=== PATIENT | male | born 1990 | race Caucasian/White ===

== ENCOUNTER 2017-12-17 07:51 | Emergency (ER) | payer OTHER ==
[2017-12-17] MEDS: TETRACAINE 0.5% OPHTH SOLN 4ML OD (08:43)
[2017-12-17] MEDS: FLUORESCEIN OPHTH 1 MG STRIP OD (08:43)
[2017-12-17] MEDS ORDERED: FLUORESCEIN OPHTH 1 MG STRIP OD (08:45)
== END 2017-12-17 09:08 | disposition home or self-care (01) ==
LOC: M ED 07:51
DX: S05.01XA Injury of conjunctiva and corneal abrasion without foreign body, right eye, initial encounter (principal); W22.8XXA Striking against or struck by other objects, initial encounter; Y92.89 Other specified places as the place of occurrence of the external cause
CPT/HCPCS: 99283

== ENCOUNTER 2018-11-21 09:14 | Emergency (ER) | payer OTHER, SELFPAY ==
[~2018-11-21] VITALS: Ht 177.8 cm; Wt 97.7 kg
[~2018-11-21 09:14] MED LIST: ERYTOIN8 OD
[2018-11-21 10:13] LABS: AMORPHOUS SEDIMENT SMALL (NEGATIVE); APPEARANCE, URINE CLEAR (CLEAR); BACTERIA, URINE AUTO NEGATIVE (NEGATIVE); BILIRUBIN, URINE AUTO NEGATIVE (NEGATIVE); BLOOD, URINE BLOOD 3+ (NEGATIVE); COLOR, URINE YELLOW (YELLOW); GLUCOSE, URINE (UA) AUTO NEGATIVE (NEGATIVE); KETONE, URINE AUTO NEGATIVE (NEGATIVE); LEUKOCYTE ESTERASE, URINE AUTO 3+ (NEGATIVE); MUCUS, URINE SMALL (NEGATIVE); NITRITE, URINE AUTO NEGATIVE (NEGATIVE); PROTEIN, URINE AUTO NEGATIVE (NEGATIVE); RBC, URINE AUTO 112 /HPF (0-3); SPECIFIC GRAVITY URINE AUTO 1.028 (1.002-1.035); SQUAMOUS EPITHELIAL CELL UR AU 0 /HPF (0-6); UROBILINOGEN, URINE AUTO 0.2 mg/dL (0.0-2.0); WBC, URINE AUTO 14 /HPF (0-3)
--- NOTE | 2018-11-21 10:52 | REP ---
High-resolution scrotal sonography: History: Left testalgia after sitting. Elevated testes. No comparison imaging. Sonographic findings: High-resolution bilateral scrotal sonography shows homogeneous testicular parenchyma bilaterally. No intratesticular lesion is seen on either side. Testicular Doppler flow is normal bilaterally. Resistive indices are 0.52 and 0.62 on the right and left respectively by Doppler. Right testis measures 5.0 x 2.4 x 3.6 cm. Left testicular dimensions are 5.3 x 2.3 x 3.5 cm. Epididymi are symmetric in size. There is a 5 mm septated cyst in the head of the epididymis on the right. There is a 5 mm epididymal cyst on the left as well. No hydrocele or hernia is seen. Impression: Small epididymal cysts. No significant abnormality noted. Electronically Signed by Ramírez Sanchez MD 11/21/2018 10:44 A
[2018-11-21 11:15] LABS: CHLAMYDIA DNA AMPLIFICATION NEGATIVE (NEGATIVE); GC DNA AMPLIFICATION NEGATIVE (NEGATIVE)
[2018-11-21] MEDS ORDERED: IBUP-1022 PO (11:40)
[2018-11-21 11:54] VITALS: BP 143/104
== END 2018-11-21 11:57 | disposition home or self-care (01) ==
LOC: M ED 09:14
DX: N50.812 Left testicular pain (principal); R31.29 Other microscopic hematuria; L72.0 Epidermal cyst; F17.220 Nicotine dependence, chewing tobacco, uncomplicated

== ENCOUNTER 2018-12-04 05:19 | Emergency (ER) | payer SELFPAY ==
[~2018-12-04] VITALS: Ht 175.3 cm; Wt 97.0 kg
[~2018-12-04 05:19] MED LIST changes: +IBUP-1022 PO
[2018-12-04 06:01] LABS: BASO # 0.1 10^3/uL (0.0-0.2); BASO % 0.5 % (0.0-1.0); EOS # 0.2 10^3/uL (0.0-0.50); EOS % 2.2 % (0.0-3.0); HEMATOCRIT 43.8 % (42.0-52.0); HEMOGLOBIN 15.5 g/dl (13.5-17.5); LYMPH # 2.5 10^3/uL (1.5-6.5); LYMPH % 22.4 % (24.0-44.0); MEAN CORPUSCULAR HEMOGLOBIN 31.8 pg (27.0-33.0); MEAN CORPUSCULAR HGB CONC 35.4 g/dl (32.0-36.5); MEAN CORPUSCULAR VOLUME 89.9 fl (80.0-96.0); MONO # 1.1 10^3/uL (0.0-0.8); NEUTROPHILS # 7.1 10^3/uL (1.8-7.7); NEUTROPHILS % 64.2 % (36.0-66.0); PLATELET COUNT, AUTOMATED 202 10^3/uL (150-450); RED BLOOD COUNT 4.87 10^6/uL (4.30-6.10); WHITE BLOOD COUNT 11.1 10^3/uL (4.0-10.0)
[2018-12-04] MEDS ORDERED: KETOROLAC 30 MG/ML VIAL (J1885) IV ONE (06:15)
[2018-12-04] MEDS ORDERED: MORPHINE 2 MG/ML 1ML SYRINGE (J2270) IV ONE (06:15)
[2018-12-04] MEDS ORDERED: ONDANSETRON 4MG/2ML VIAL (J2405) IV ONE (06:15)
[2018-12-04] MEDS ORDERED: NS 1,000 ML IV ONE (06:15)
[2018-12-04 06:18] LABS: BLOOD UREA NITROGEN 14 MG/DL (7-18); CALCIUM LEVEL 9.3 MG/DL (8.5-10.1); CARBON DIOXIDE LEVEL 26 MEQ/L (21-32); CHLORIDE LEVEL 106 MEQ/L (98-107); CREATININE FOR GFR 0.88 MG/DL (0.70-1.30); GLOMERULAR FILTRATION RATE > 60.0 (>60); GLUCOSE, FASTING 114 MG/DL (70-100); POTASSIUM SERUM 4.1 MEQ/L (3.5-5.1); SODIUM LEVEL 140 MEQ/L (136-145)
--- NOTE | 2018-12-04 06:39 | REPVR ---
EXAM: CT Abdomen and Pelvis Without Contrast EXAM DATE/TIME: 12/04/2018 6:02 AM CLINICAL HISTORY: 28 years old, male; Abdominal pain; Flank; Left; Additional info: Llq pain diarrhea, hematuria; Kidney stone vs diverticulitis TECHNIQUE: Imaging protocol: Axial computed tomography images of the abdomen and pelvis without contrast. Coronal and sagittal reformatted images were created and reviewed. Radiation optimization: All CT scans at this facility use at least one of these dose optimization techniques: automated exposure control; mA and/or kV adjustment per patient size (includes targeted exams where dose is matched to clinical indication); or iterative reconstruction. COMPARISON: No relevant prior studies available. FINDINGS: Lungs: The visualized portions of the lung bases are normal. ABDOMEN: Liver: There is a diffuse decrease in hepatic parenchymal density, consistent with fatty infiltration. Gallbladder and bile ducts: The gallbladder is normal with no stones or biliary ductal dilation. Pancreas: The pancreas is normal with no ductal dilation. Spleen: The spleen is normal. Adrenals: The adrenal glands are normal. Kidneys and ureters: There is mild left kidney hydronephrosis. There is an obstructing 4 x 5 x 4 mm stone in the distal left ureter, just beyond the crossing of the iliac vessels. There is associated left periureteral stranding and a trace of left perinephric stranding.The right ureter appears normal with no stones or hydronephrosis. There are multiple additional nonobstructing stones in both kidneys. Stomach and bowel: Mild diverticulosis is present in the distal colon. There is no dilation or thickening of the colon. The small bowel appears unremarkable. Appendix: A normal appendix is identified. PELVIS: Bladder: The bladder is mostly collapsed. No bladder stones are identified. Reproductive: The prostate gland and seminal vesicles are normal. ABDOMEN and PELVIS: Intraperitoneal space: There is no free intraperitoneal air. Bones/joints: No suspicious osseous lesions. No acute fractures or dislocations. A small sclerotic focus consistent with a bone island is seen in the left ischium. Soft tissues: Unremarkable. Vasculature: The aorta is normal. No aneurysm. Lymph nodes: No lymphadenopathy is seen. IMPRESSION: 1. Obstructing 4 x 5 x 4 mm stone in the distal left ureter with associated left sided hydronephrosis and left periureteral stranding. 2. Multiple additional nonobstructing stones in both kidneys. 3. Mild diverticulosis without evidence of acute diverticulitis. 4. Fatty liver. Electronically signed by: Shena Denise On 12/04/2018 06:38:39 AM
[2018-12-04] MEDS ORDERED: NORC1TAB7 PO (06:50)
[2018-12-04] MEDS ORDERED: BACT800T5 PO (06:50)
[2018-12-04] MEDS ORDERED: FLOM0.4C39 PO (06:50)
[2018-12-04] MEDS ORDERED: ONDA4TAB6 PO (06:50)
[2018-12-04 07:25] VITALS: BP 150/100
== END 2018-12-04 07:28 | disposition home or self-care (01) ==
LOC: M ED 05:19
DX: N20.1 Calculus of ureter (principal)
CPT/HCPCS: 36415; 74176; 80048; 81001; 85025; 96361; 96374; 96375; 99284; J2270; J2405

== ENCOUNTER 2019-03-27 08:01 | Emergency (ER) | payer SELFPAY ==
[~2019-03-27] VITALS: Ht 172.7 cm; Wt 90.9 kg
[~2019-03-27 08:01] MED LIST changes: +BACT800T5 PO; +FLOM0.4C39 PO; +NORC1TAB7 PO; +ONDA4TAB6 PO
--- NOTE | 2019-03-27 09:28 | REP ---
Left ankle four views : There is no fracture or dislocation. Mineralization and joint spaces are normal. There are no calcifications or foreign bodies. Impression: Negative left ankle . Electronically Signed by Tj Dominguez MD 03/27/2019 09:20 A
--- NOTE | 2019-03-27 09:29 | REP ---
Left foot four views : There is no fracture or dislocation. Mineralization and joint spaces are normal. There are no calcifications or foreign bodies. Impression: Negative left foot . Electronically Signed by Tj Dominguez MD 03/27/2019 09:21 A
[2019-03-27 10:26] VITALS: BP 139/99
== END 2019-03-27 10:30 | disposition home or self-care (01) ==
LOC: M ED 08:01
DX: S93.492A Sprain of other ligament of left ankle, initial encounter (principal); X50.9XXA Other and unspecified overexertion or strenuous movements or postures, initial encounter; Y92.018 Other place in single-family (private) house as the place of occurrence of the external cause; F17.220 Nicotine dependence, chewing tobacco, uncomplicated

== ENCOUNTER 2019-08-20 09:09 | Emergency (ER) | payer SELFPAY ==
[~2019-08-20] VITALS: Ht 177.8 cm; Wt 101.8 kg
[2019-08-20] MEDS ORDERED: PEPT262C2 PO (09:15)
[2019-08-20] MEDS ORDERED: PANTOPRAZOLE 40MG INJ (PROTONIX) (C9113) IV ONE (09:45)
[2019-08-20] MEDS ORDERED: NS 1,000 ML IV ONE (09:45)
[2019-08-20 10:16] LABS: BASO % 0.5 % (0.0-1.0); EOS # 0.2 10^3/uL (0.0-0.5); EOS % 2.3 % (0.0-3.0); HEMATOCRIT 47.3 % (42.0-52.0); HEMOGLOBIN 16.4 g/dl (13.5-17.5); LYMPH # 1.3 10^3/uL (1.5-5.0); LYMPH % 16.4 % (24.0-44.0); MEAN CORPUSCULAR HEMOGLOBIN 31.5 pg (27.0-33.0); MEAN CORPUSCULAR HGB CONC 34.7 g/dl (32.0-36.5); MONO # 0.9 10^3/uL (0.0-0.8); MONO % 11.4 % (0.0-5.0); NEUTROPHILS # 5.3 10^3/uL (1.5-8.5); NEUTROPHILS % 68.9 % (36.0-66.0); PLATELET COUNT, AUTOMATED 188 10^3/uL (150-450); WHITE BLOOD COUNT 7.7 10^3/uL (4.0-10.0)
[2019-08-20 10:27] LABS: INR 1.12; PROTHROMBIN TIME 14.1 SECONDS (11.8-14.0)
[2019-08-20 10:28] LABS: PARTIAL THROMBOPLASTIN TIME 36.2 SECONDS (25.0-38.4)
[2019-08-20 10:43] LABS: ALBUMIN 4.4 GM/DL (3.2-5.2); ALT/SGPT 83 U/L (12-78); BILIRUBIN,DIRECT 0.2 MG/DL (0.0-0.2); BILIRUBIN,TOTAL 0.8 MG/DL (0.2-1.0); BLOOD UREA NITROGEN 11 MG/DL (7-18); CALCIUM LEVEL 9.4 MG/DL (8.5-10.1); CARBON DIOXIDE LEVEL 25 MEQ/L (21-32); CHLORIDE LEVEL 107 MEQ/L (98-107); GLOMERULAR FILTRATION RATE > 60.0 (>60); GLUCOSE, FASTING 97 MG/DL (70-100); POTASSIUM SERUM 4.1 MEQ/L (3.5-5.1); SODIUM LEVEL 139 MEQ/L (136-145); TOTAL PROTEIN 8.1 GM/DL (6.4-8.2)
[2019-08-20] MEDS ORDERED: ONDA4TAB6 PO (11:14)
[2019-08-20] MEDS ORDERED: ONDANSETRON 4MG/2ML VIAL (J2405) IV ONE (11:15)
[2019-08-20] MEDS ORDERED: DICYCLOMINE 10 MG CAP PO ONE (12:45)
--- NOTE | 2019-08-20 12:57 | REP ---
Right upper quadrant sonography: History: Elevated liver function studies. Vomiting. Findings: Scanning through the right upper quadrant of the abdomen demonstrates a small amount of sludge in a tender thin-walled normal size gallbladder. No stone is seen. Common bile duct is normal measuring 0.6 cm in greatest diameter. Increased echogenicity is seen throughout the liver consistent with fatty infiltration. There are areas of fat sparing adjacent to the gallbladder. Pancreatic tail is obscured by abdominal gas. No pancreatic abnormalities observed. There is no evidence of ascites. The right kidney measures 11.4 x 5.7 x 6.1 cm. There is an echogenic focus in the central renal sinus fat of the lower pole of the right kidney which could be a small calculus. Impression: Tenderness to scanning over the gallbladder. Small amount of sludge. No stones seen. Normal CBD. Evidence of fatty infiltration of the liver. Question lower pole calculus right kidney. Electronically Signed by Ramírez Sanchez MD 08/20/2019 04:56 P
[2019-08-20 13:05] VITALS: BP 150/100
[2019-08-21 10:41] LABS: HEPATITIS A ANTIBODY IGM NEGATIVE (NEGATIVE); HEPATITIS B CORE ANTIBODY IGM NEGATIVE (NEGATIVE); HEPATITIS B SURFACE ANTIGEN NEGATIVE (NEGATIVE); HEPATITIS C VIRUS ABY INDEX < 0.0 INDEX (<0.8)
== END 2019-08-20 13:07 | disposition home or self-care (01) ==
LOC: M ED 09:09
DX: K52.9 Noninfective gastroenteritis and colitis, unspecified (principal); K76.0 Fatty (change of) liver, not elsewhere classified; R11.2 Nausea with vomiting, unspecified; R19.7 Diarrhea, unspecified
CPT/HCPCS: 76705; 80048; 80076; 85025; 85610; 85730; 86705; 86709; 86803; 86850; 86900; 86901; 87340; 87507; 96361; 96374; 96375; 99284; C9113; J2405

== ENCOUNTER 2020-12-30 03:11 | Emergency (ER) | payer MEDICAID, OTHER ==
[~2020-12-30] VITALS: Ht 175.3 cm; Wt 104.0 kg
[2020-12-30 03:11] VITALS: BP 158/98
[~2020-12-30 03:11] MED LIST changes: +PEPT262C2 PO
[2020-12-30] MEDS ORDERED: FLUORESCEIN OPHTH 1 MG STRIP OS ONE (06:05)
[2020-12-30] MEDS ORDERED: TETRACAINE 0.5% OPHTH SOLN 4ML OS ONE (06:05)
[2020-12-30] MEDS ORDERED: ACETAMINOPHEN 500 MG TAB PO ONE (06:15)
[2020-12-30] MEDS ORDERED: BOOSTRIX/ADACEL VACCINE (DIPHTH/PERTUSS/ACELL/TETANUS) 0.5ML SYR IM ONE (06:15)
[2020-12-30] MEDS ORDERED: POLYSOL OS (07:06)
== END 2020-12-30 07:27 | disposition home or self-care (01) ==
LOC: M ED 03:11
DX: H57.12 Ocular pain, left eye (principal); H57.89 Other specified disorders of eye and adnexa; I10 Essential (primary) hypertension; Z87.828 Personal history of other (healed) physical injury and trauma

== ENCOUNTER 2021-03-22 08:00 | Emergency (ER) | payer OTHER ==
[~2021-03-22] VITALS: Ht 175.3 cm; Wt 97.7 kg
[~2021-03-22 08:00] MED LIST changes: +POLYSOL OS
[2021-03-22] MEDS ORDERED: ONDANSETRON 4 MG TAB PO ONE (08:45)
[2021-03-22] MEDS ORDERED: ACETAMINOPHEN 325 MG TAB PO ONE (08:45)
[2021-03-22 09:41] LABS: RSV AMPLIFICATION NEGATIVE (NEGATIVE)
[2021-03-22 09:53] VITALS: BP 138/101
== END 2021-03-22 09:58 | disposition home or self-care (01) ==
LOC: M ED 08:00
DX: R51.9 Headache, unspecified (principal); B34.9 Viral infection, unspecified; R50.9 Fever, unspecified; Z87.442 Personal history of urinary calculi

== ENCOUNTER 2021-03-23 06:37 | Emergency (ER) | payer OTHER ==
--- NOTE | 2021-03-23 08:03 | REP ---
INDICATION: chest pain COMPARISON: None. TECHNIQUE: Portable AP view of the chest FINDINGS: The mediastinum and cardiac silhouette are within normal limits for portable technique. The lung avery are clear without acute consolidation, effusion, or pneumothorax. Skeletal structures are intact. IMPRESSION: No acute cardiopulmonary process appreciated. <Electronically signed by Adriano Castañeda > 03/23/21 [id number]
[2021-03-23] MEDS ORDERED: ASPIRIN 81 MG CHEW TABLET PO ONE (09:10)
[2021-03-23 09:50] LABS: BASO % 0.2 % (0.0-1.0); EOS % 0.1 % (0.0-3.0); HEMATOCRIT 45.6 % (42.0-52.0); HEMOGLOBIN 15.5 g/dl (13.5-17.5); LYMPH # 0.8 10^3/uL (1.5-5.0); LYMPH % 5.7 % (24.0-44.0); MEAN CORPUSCULAR HEMOGLOBIN 31.6 pg (27.0-33.0); MEAN CORPUSCULAR VOLUME 93.1 fl (80.0-96.0); MONO # 0.8 10^3/uL (0.0-0.8); MONO % 5.2 % (2.0-8.0); NEUTROPHILS # 12.8 10^3/uL (1.5-8.5); NEUTROPHILS % 88.4 % (36.0-66.0); PLATELET COUNT, AUTOMATED 168 10^3/uL (150-450); WHITE BLOOD COUNT 14.5 10^3/uL (4.0-10.0)
[2021-03-23] MEDS ORDERED: ISOVUE-370 76% 100ML VIAL As Ordered ONE (09:50)
[2021-03-23 10:13] LABS: ERYTHROCYTE SEDIMENTATION RATE 16 mm/hr (0-15)
[2021-03-23 10:29] LABS: C REACTIVE PROTEIN QUANTITATIV 5.77 MG/DL (0.00-0.30); CK-MB VALUE MASS 12.2 NG/ML (<3.6); MB/CK RELATIVE INDEX 2.82 (< OR =4); TROPONIN I 2.29 NG/ML (< 0.10)
--- NOTE | 2021-03-23 10:32 | REP ---
INDICATION: r/o PE COMPARISON: None. TECHNIQUE: Axial contrast enhanced images from the thoracic inlet to the upper abdomen using pulmonary embolus technique with multiplanar re-formations. 75 ml Isovue 370 intravenous contrast material administered without complication. This CT examination was performed using the following dose reduction techniques: Automated exposure control, adjustment of mA and/or kv according to the patient's size, and use of iterative reconstruction technique. FINDINGS: Satisfactory enhancement of the pulmonary vasculature is achieved and no filling defects are identified to suggest pulmonary embolus. Further evaluation of the mediastinum demonstrates normal thoracic aorta, heart and pericardium. The bilateral lung avery are well aerated and clear without consolidation pleural effusion or pneumothorax. Tracheobronchial tree is patent. No nodule or mass lesion is identified. No adenopathy noted. Surrounding musculoskeletal structures intact IMPRESSION: No evidence for pulmonary embolus. No acute mediastinal or pleural parenchymal process. <Electronically signed by Adriano Castañeda > 03/23/21 1028
[2021-03-23 11:45] LABS: INR 1.04
[2021-03-23 11:47] LABS: PARTIAL THROMBOPLASTIN TIME 35.8 SECONDS (25.9-37.0)
[2021-03-23 12:13] LABS: CK-MB VALUE MASS 13.8 NG/ML (<3.6); MB/CK RELATIVE INDEX 3.01 (< OR =4); TROPONIN I 2.48 NG/ML (< 0.10)
[2021-03-23] MEDS ORDERED: HEPARIN SOD (PORCINE) 5000UNITS/ML 1ML VIAL/SYRINGE IV ONE (12:25)
[2021-03-23] MEDS ORDERED: HEPARIN DRIP 25,000 UNITS in IV 1 EA IV SCH (12:25)
[2021-03-23 13:46] VITALS: BP 146/98
--- NOTE | 2021-03-23 18:58 | ECGEPIP ---
[facility] - ED Test Date: 2021-03-23 Pat Name: SAAD ANDERS Department: Room: - Gender: Male [employer]: FRED : 1990 Requested By: Eugeen Mao Order Number: [id number] Reading MD: Kenyatta Dos Santos Measurements Intervals [place] Rate: 88 P: 66 MD: 176 QRS: 21 QRSD: 92 T: 33 QT: 358 QTc: 433 Interpretive Statements Normal sinus rhythm NSTTW abnormalities No prior Electronically Signed on 03-23-2021 18:58:11 EDT by Kenyatta Dos Santos
== END 2021-03-23 14:04 | disposition short-term general hospital (02) ==
LOC: M ED 06:37
DX: I21.4 Non-ST elevation (NSTEMI) myocardial infarction (principal); Z87.442 Personal history of urinary calculi; F10.10 Alcohol abuse, uncomplicated; K57.90 Diverticulosis of intestine, part unspecified, without perforation or abscess without bleeding
CPT/HCPCS: 71045; 71275; 80047; 82550; 82553; 85025; 85610; 85652; 85730; 86140; 87798; 93005; 96365; 99285; J1644; Q9967

== ENCOUNTER 2021-06-27 22:47 | Emergency (ER) | payer OTHER ==
[2021-06-27] MEDS ORDERED: KETOROLAC 30 MG/ML 1ML VIAL IV ONE (23:05)
[2021-06-27] MEDS ORDERED: LISI5TAB11 (23:24)
[2021-06-27] MEDS ORDERED: ASPI-226 (23:24)
[2021-06-27] MEDS ORDERED: METO1TAB32 (23:24)
[2021-06-27] MEDS ORDERED: CLOP75TA2 (23:24)
[2021-06-27 23:26] LABS: BASO % 0.3 % (0.0-1.0); EOS # 0.1 10^3/uL (0.0-0.5); HEMATOCRIT 42.6 % (42.0-52.0); HEMOGLOBIN 14.9 g/dl (13.5-17.5); LYMPH # 1.7 10^3/uL (1.5-5.0); LYMPH % 12.2 % (24.0-44.0); MEAN CORPUSCULAR HEMOGLOBIN 31.6 pg (27.0-33.0); MEAN CORPUSCULAR VOLUME 90.3 fl (80.0-96.0); MONO # 0.8 10^3/uL (0.0-0.8); MONO % 5.9 % (2.0-8.0); NEUTROPHILS # 11.1 10^3/uL (1.5-8.5); NEUTROPHILS % 80.1 % (36.0-66.0); PLATELET COUNT, AUTOMATED 191 10^3/uL (150-450); RED BLOOD COUNT 4.72 10^6/uL (4.30-6.10); WHITE BLOOD COUNT 13.8 10^3/uL (4.0-10.0)
[2021-06-27 23:50] LABS: ALBUMIN 4.2 GM/DL (3.2-5.2); ALT/SGPT 56 U/L (12-78); BILIRUBIN,TOTAL 0.5 MG/DL (0.2-1.0); BLOOD UREA NITROGEN 8 MG/DL (7-18); CALCIUM LEVEL 9.3 MG/DL (8.5-10.1); CARBON DIOXIDE LEVEL 27 MEQ/L (21-32); CHLORIDE LEVEL 103 MEQ/L (98-107); CREATININE FOR GFR 0.92 MG/DL (0.70-1.30); GLOMERULAR FILTRATION RATE > 60.0 (>60); GLUCOSE, FASTING 119 MG/DL (70-100); MAGNESIUM LEVEL 1.8 MG/DL (1.8-2.4); POTASSIUM SERUM 3.7 MEQ/L (3.5-5.1); SODIUM LEVEL 138 MEQ/L (136-145); TOTAL PROTEIN 7.6 GM/DL (6.4-8.2)
[2021-06-28] MEDS ORDERED: amLODIPine 5 MG TAB PO ONE ×2 (00:40→02:40)
[2021-06-28] MEDS ORDERED: lisinopriL 5 MG TAB PO ONE (00:40)
[2021-06-28] MEDS ORDERED: PERCOCET 5MG/325MG TAB PO ONE (01:10)
[2021-06-28] MEDS ORDERED: FLOM0.4C39 PO (01:10)
[2021-06-28] MEDS ORDERED: KETO10TAB PO (01:10)
[2021-06-28 02:42] VITALS: BP 140/100
[2021-06-28 03:47] VITALS: BP 147/92
== END 2021-06-28 03:49 | disposition home or self-care (01) ==
LOC: M ED 22:47
DX: N20.0 Calculus of kidney (principal); I10 Essential (primary) hypertension; R11.2 Nausea with vomiting, unspecified; R10.9 Unspecified abdominal pain; I25.10 Atherosclerotic heart disease of native coronary artery without angina pectoris; F17.200 Nicotine dependence, unspecified, uncomplicated
CPT/HCPCS: 74176; 80053; 81001; 83735; 85025; 96374; 99284; J1885

== ENCOUNTER → 2022-02-19 | Outpatient (CLI) | payer OTHER ==
[~2022-02-19] MED LIST changes: +ASPI-226; +CLOP75TA2; +KETO10TAB PO; +LISI5TAB11; +METO1TAB32
[2022-02-19 17:47] LABS: APPEARANCE, URINE CLEAR (CLEAR); BACTERIA, URINE AUTO NEGATIVE (NEGATIVE); BILIRUBIN, URINE AUTO NEGATIVE (NEGATIVE); BLOOD, URINE BLOOD 1+ (NEGATIVE); COLOR, URINE YELLOW (YELLOW); GLUCOSE, URINE (UA) AUTO NEGATIVE (NEGATIVE); KETONE, URINE AUTO NEGATIVE (NEGATIVE); LEUKOCYTE ESTERASE, URINE AUTO TRACE (NEGATIVE); MUCUS, URINE SMALL (NEGATIVE); NITRITE, URINE AUTO NEGATIVE (NEGATIVE); PROTEIN, URINE AUTO NEGATIVE (NEGATIVE); RBC, URINE AUTO 4 /HPF (0-3); SPECIFIC GRAVITY URINE AUTO 1.014 (1.002-1.035); SQUAMOUS EPITHELIAL CELL UR AU 0 /HPF (0-6); UROBILINOGEN, URINE AUTO 0.2 mg/dL (0.0-2.0); WBC, URINE AUTO 4 /HPF (0-3)
[2022-02-19 19:28] LABS: ALT/SGPT 35 IU/L (0-32); BILIRUBIN,TOTAL 0.7 MG/DL (0.2-1.0); BLOOD UREA NITROGEN 6 MG/DL (7-18); CALCIUM LEVEL 9.4 MG/DL (8.5-10.1); CARBON DIOXIDE LEVEL 26 mmol/L (20-29); CHLORIDE LEVEL 110 MEQ/L (98-107); CHOLESTEROL LEVEL 168 MG/DL (<200); CREATININE FOR GFR 0.78 MG/DL (0.70-1.30); GLOMERULAR FILTRATION RATE > 60.0 (>60); GLUCOSE, FASTING 76 MG/DL (70-100); POTASSIUM SERUM 4.3 MEQ/L (3.5-5.1); SODIUM LEVEL 142 MEQ/L (136-145); TRIGLYCERIDES LEVEL 132 MG/DL (<150)
[2022-02-19 19:29] LABS: ALBUMIN 4.1 GM/DL (3.2-5.2); HDL CHOLESTEROL 40 MG/DL (>40); LDL CHOLESTEROL 101.6 MG/DL (<100); NON-HDL-C 128 MG/DL; TOTAL PROTEIN 7.2 GM/DL (6.4-8.2)
== END ==
LOC: M LAB 15:50
PROVIDERS: ATTEND Internal Medicine
DX: I10 Essential (primary) hypertension (principal); I25.10 Atherosclerotic heart disease of native coronary artery without angina pectoris

== ENCOUNTER → 2022-03-31 | Day surgery (SDC) | payer OTHER ==
[~2022-03-31] VITALS: Ht 175.3 cm; Wt 104.5 kg
[~2022-03-31] MED LIST changes: +CEPH500C; +LIDOCAINE 2% 5ML JELLY UROJET TOP ONE; +LIDOCAINE 2% INJ 100 MG/5 ML SYRINGE As Ordered ONE; +LISI10TA22; +LR 1,000 ML IV SCH; +MIDAZOLAM INJ 2MG/2ML VIAL (J2250 PER 1MG) As Ordered ONE; +ONDANSETRON 4MG 2ML VIAL IV PRN; +cefTRIAXone SOD 2 GM in D5W MINI-BAG PLUS 50 ML IV ONE; +dexameTHASONE 4 MG/ML 1ML VIAL (J1100 PER 1MG) As Ordered ONE; +fentaNYL 100 MCG/2 ML INJECTION As Ordered ONE; +fentaNYL 100 MCG/2 ML INJECTION IV PRN; +propofoL 200 MG/20 ML VIAL As Ordered ONE
[2022-03-31 14:57] LABS: BASO # 0.1 10^3/uL (0.0-0.2); BASO % 0.8 % (0.0-1.0); EOS # 0.8 10^3/uL (0.0-0.5); EOS % 7.7 % (0.0-3.0); HEMATOCRIT 42.6 % (42.0-52.0); HEMOGLOBIN 15.1 g/dl (13.5-17.5); LYMPH # 2.2 10^3/uL (1.5-5.0); LYMPH % 20.7 % (24.0-44.0); MEAN CORPUSCULAR HEMOGLOBIN 32.1 pg (27.0-33.0); MEAN CORPUSCULAR HGB CONC 35.4 g/dl (32.0-36.5); MEAN CORPUSCULAR VOLUME 90.4 fl (80.0-96.0); MONO # 0.8 10^3/uL (0.0-0.8); MONO % 7.4 % (2.0-8.0); NEUTROPHILS # 6.6 10^3/uL (1.5-8.5); NEUTROPHILS % 62.9 % (36.0-66.0); PLATELET COUNT, AUTOMATED 198 10^3/uL (150-450); RED BLOOD COUNT 4.71 10^6/uL (4.30-6.10); WHITE BLOOD COUNT 10.5 10^3/uL (4.0-10.0)
[2022-03-31 15:22] LABS: BLOOD UREA NITROGEN 10 MG/DL (7-18); CALCIUM LEVEL 9.3 MG/DL (8.5-10.1); CARBON DIOXIDE LEVEL 27 MEQ/L (21-32); CHLORIDE LEVEL 108 MEQ/L (98-107); CREATININE FOR GFR 0.78 MG/DL (0.70-1.30); GLOMERULAR FILTRATION RATE > 60.0 (>60); GLUCOSE, FASTING 85 MG/DL (70-100); POTASSIUM SERUM 4.3 MEQ/L (3.5-5.1); SODIUM LEVEL 139 MEQ/L (136-145)
[2022-03-31 15:30] LABS: RSV AMPLIFICATION NEGATIVE (NEGATIVE)
[2022-03-31] MEDS: PERCOCET 5MG/325MG TAB PO PRN ×2 (20:05→20:39)
[2022-03-31] MEDS: MORPHINE 2 MG/ML 1ML VIAL IV PRN ×2 (20:05→20:10)
[2022-03-31 20:39] VITALS: BP 146/95
[2022-04-09 16:08] LABS: CA Oxalate Dihy 50 % (.); Ca Ox Monohydrate 40 % (.); Size 9x7 mm (.)
== END | disposition home or self-care (01) ==
LOC: M ED 11:55 → M SDC 18:16 → M ED 18:40
PROVIDERS: ATTEND Urology
DX: N20.9 Urinary calculus, unspecified (principal); I10 Essential (primary) hypertension; I25.2 Old myocardial infarction; Z86.73 Personal history of transient ischemic attack (TIA), and cerebral infarction without residual deficits; Z79.02 Long term (current) use of antithrombotics/antiplatelets; Z79.82 Long term (current) use of aspirin; Z79.899 Other long term (current) drug therapy
CPT/HCPCS: 52310; 80048; 81000; 81015; 82365; 85025; 87088; 87186; 87631; 99285; J0696; J1100; J2250; J2270; J2405; J3010

== ENCOUNTER 2022-11-22 07:06 | Day surgery (SDC) | payer OTHER ==
[~2022-11-22] VITALS: Ht 172.7 cm; Wt 97.1 kg
[~2022-11-22 07:06] MED LIST changes: +AMPICILLIN SOD/SULBACTAM SOD 3 GM in D5W MINI-BAG PLUS 100 ML IV ONE; -LIDOCAINE 2% 5ML JELLY UROJET TOP ONE; -LIDOCAINE 2% INJ 100 MG/5 ML SYRINGE As Ordered ONE; -LR 1,000 ML IV SCH; -MIDAZOLAM INJ 2MG/2ML VIAL (J2250 PER 1MG) As Ordered ONE; -ONDANSETRON 4MG 2ML VIAL IV PRN; -cefTRIAXone SOD 2 GM in D5W MINI-BAG PLUS 50 ML IV ONE; -dexameTHASONE 4 MG/ML 1ML VIAL (J1100 PER 1MG) As Ordered ONE; -fentaNYL 100 MCG/2 ML INJECTION As Ordered ONE; -fentaNYL 100 MCG/2 ML INJECTION IV PRN; -propofoL 200 MG/20 ML VIAL As Ordered ONE
[2022-11-22] MEDS ORDERED: fentaNYL 100 MCG/2 ML INJECTION As Ordered ONE (07:39)
[2022-11-22] MEDS ORDERED: MIDAZOLAM INJ 2MG/2ML VIAL As Ordered ONE (07:39)
[2022-11-22] MEDS ORDERED: SUGAMMADEX SODIUM 500 MG/5 ML VIAL (BRIDION) As Ordered ONE (07:41)
[2022-11-22] MEDS ORDERED: LIDOCAINE 2% 100MG/5ML SDV (FOR ANES.) As Ordered ONE (07:41)
[2022-11-22] MEDS ORDERED: ACETAMINOPHEN 1000MG 100ML IV BAG As Ordered ONE (07:41)
[2022-11-22] MEDS ORDERED: ROCURONIUM BROMIDE 50MG/5ML VIAL As Ordered ONE (07:41)
[2022-11-22] MEDS ORDERED: KETOROLAC 60MG 2ML VIAL As Ordered ONE (07:41)
[2022-11-22] MEDS ORDERED: propofoL 200 MG/20 ML VIAL As Ordered ONE ×2 (07:41→08:33)
[2022-11-22] MEDS ORDERED: ONDANSETRON 4MG 2ML VIAL As Ordered ONE (07:41)
[2022-11-22] MEDS ORDERED: HYDROmorphone HCL 2MG/ML 1ML VIAL As Ordered ONE (08:08)
[2022-11-22] MEDS ORDERED: ESMOLOL INJ 100MG/10ML VIAL As Ordered ONE (08:10)
[2022-11-22] MEDS ORDERED: CHLORHEXIDINE GLUCONATE 0.12 % 15ML UDC (PERIDEX ORAL RINSE) As Ordered ONE (08:43)
[2022-11-22] MEDS ORDERED: BUPIVACAINE LIPOSOME/PF 1.3% 20ML VIAL (13.3MG/ML)(EXPAREL) As Ordered ONE (08:43)
[2022-11-22] MEDS ORDERED: LIDOCAINE 2% W/ EPINEPHRINE 1.7 ML DENTAL INJ As Ordered ONE (08:43)
[2022-11-22] MEDS ORDERED: LR 1,000 ML IV SCH (08:45)
[2022-11-22] MEDS ORDERED: ONDANSETRON 4MG 2ML VIAL IV PRN (08:45)
[2022-11-22] MEDS ORDERED: fentaNYL 100 MCG/2 ML INJECTION IV PRN (08:45)
[2022-11-22] MEDS ORDERED: HYDROMORPHONE HCL 0.5 MG/ 0.5 ML SYRINGE IV PRN (08:45)
[2022-11-22] MEDS ORDERED: oxyCODONE 5MG TAB PO PRN (08:45)
[2022-11-22 10:06] VITALS: BP 136/96
== END 2022-11-22 10:24 | disposition home or self-care (01) ==
LOC: M SDC 07:06
PROVIDERS: ATTEND Dentist
DX: K02.9 Dental caries, unspecified (principal); I10 Essential (primary) hypertension; Z79.899 Other long term (current) drug therapy; Z79.82 Long term (current) use of aspirin; F12.10 Cannabis abuse, uncomplicated; F17.220 Nicotine dependence, chewing tobacco, uncomplicated
CPT/HCPCS: 88300; C9290; D7210; D9223; J0131; J0295; J1100; J1170; J1885; J2250; J2405; J3010

== ENCOUNTER 2023-12-06 14:13 | Emergency (ER) | payer OTHER ==
[~2023-12-06] VITALS: Ht 172.7 cm; Wt 102.1 kg
[~2023-12-06 14:13] MED LIST changes: -AMPICILLIN SOD/SULBACTAM SOD 3 GM in D5W MINI-BAG PLUS 100 ML IV ONE
[2023-12-06 14:15] VITALS: TEMP 97.5; O2SAT 98
[2023-12-06] MEDS ORDERED: ADVICAP PO (14:21)
[2023-12-06] MEDS ORDERED: ACET-683 PO (14:21)
[2023-12-06 14:53] LABS: BASO # 0.1 10^3/uL (0.0-0.2); BASO % 0.4 % (0.0-1.0); EOS # 0.3 10^3/uL (0.0-0.5); EOS % 1.9 % (0.0-3.0); HEMATOCRIT 42.9 % (42.0-52.0); HEMOGLOBIN 15.3 g/dl (13.5-17.5); LYMPH # 2.3 10^3/uL (1.5-5.0); LYMPH % 17.3 % (24.0-44.0); MEAN CORPUSCULAR HEMOGLOBIN 31.9 pg (27.0-33.0); MEAN CORPUSCULAR HGB CONC 35.7 g/dl (32.0-36.5); MEAN CORPUSCULAR VOLUME 89.4 fl (80.0-96.0); MONO % 7.7 % (2.0-8.0); NEUTROPHILS # 9.5 10^3/uL (1.5-8.5); NEUTROPHILS % 72.2 % (36.0-66.0); PLATELET COUNT, AUTOMATED 197 10^3/uL (150-450); WHITE BLOOD COUNT 13.2 10^3/uL (4.0-10.0)
[2023-12-06 14:58] LABS: ERYTHROCYTE SEDIMENTATION RATE 13 mm/hr (0-15)
[2023-12-06] MEDS ORDERED: ISOVUE-370 76% 100ML VIAL As Ordered ONE (15:52)
[2023-12-06] MEDS: AMPICILLIN SOD/SULBACTAM SOD 3 GM in D5W MINI-BAG PLUS 100 ML IV ONE (15:56)
[2023-12-06] MEDS: dexAMETHasone 20MG/5ML VIAL IV ONE (15:56)
[2023-12-06] MEDS: NS 1,000 ML IV ONE (15:56)
[2023-12-06] MEDS: KETOROLAC 30 MG/ML 1ML VIAL IV ONE (15:56)
[2023-12-06] MEDS ORDERED: AMOX875T2 PO (17:43)
[2023-12-06 17:48] VITALS: BP 155/90
== END 2023-12-06 18:08 | disposition home or self-care (01) ==
LOC: M ED 14:13
DX: K02.9 Dental caries, unspecified (principal); I10 Essential (primary) hypertension; F17.220 Nicotine dependence, chewing tobacco, uncomplicated; F12.10 Cannabis abuse, uncomplicated; Z79.1 Long term (current) use of non-steroidal anti-inflammatories (NSAID); Z79.2 Long term (current) use of antibiotics
CPT/HCPCS: 70491; 80047; 83605; 85025; 85652; 86140; 87040; 96365; 96366; 96374; 99283; J0295; J1100; J1885; Q9967

== ENCOUNTER 2024-06-26 14:35 | Emergency (ER) | payer MEDICAID ==
[~2024-06-26] VITALS: Ht 170.2 cm; Wt 102.3 kg
[~2024-06-26 14:35] MED LIST changes: +ACET-683 PO; +ADVICAP PO; +AMOX875T2 PO; +ONDA-282 PO; -ONDA4TAB6 PO
[2024-06-26 16:35] LABS: BASO # 0.1 10^3/uL (0.0-0.2); BASO % 0.7 % (0.0-1.0); EOS # 0.1 10^3/uL (0.0-0.5); EOS % 0.8 % (0.0-3.0); HEMATOCRIT 42.3 % (42.0-52.0); HEMOGLOBIN 14.8 g/dl (13.5-17.5); LYMPH # 2.6 10^3/uL (1.5-5.0); LYMPH % 19.3 % (24.0-44.0); MEAN CORPUSCULAR HEMOGLOBIN 31.9 pg (27.0-33.0); MEAN CORPUSCULAR VOLUME 91.2 fl (80.0-96.0); MONO # 1.1 10^3/uL (0.0-0.8); MONO % 7.8 % (2.0-8.0); NEUTROPHILS # 9.5 10^3/uL (1.5-8.5); NEUTROPHILS % 69.8 % (36.0-66.0); PLATELET COUNT, AUTOMATED 220 10^3/uL (150-450); RED BLOOD COUNT 4.64 10^6/uL (4.30-6.10); WHITE BLOOD COUNT 13.5 10^3/uL (4.0-10.0)
[2024-06-26 16:39] LABS: ERYTHROCYTE SEDIMENTATION RATE 42 mm/hr (0-15)
[2024-06-26 16:43] LABS: INR 1.01; PARTIAL THROMBOPLASTIN TIME 35.4 SECONDS (24.8-34.2); PROTHROMBIN TIME 13.7 SECONDS (12.5-14.5)
[2024-06-26 17:04] LABS: LIPASE 30 U/L (12-53)
[2024-06-26 17:05] LABS: CK-MB VALUE MASS < 1.0 NG/ML (<3.6)
[2024-06-26 17:06] LABS: ALBUMIN 3.7 G/DL (3.2-5.2); ALKALINE PHOSPHATASE 74 U/L (40-129); ALT/SGPT 77 U/L (7.0-40); AST/SGOT 40 U/L (<34); BILIRUBIN,DIRECT 0.1 MG/DL (<0.4); BILIRUBIN,TOTAL 0.4 MG/DL (0.3-1.2); BLOOD UREA NITROGEN 14 MG/DL (9-23); CALCIUM LEVEL 9.7 MG/DL (8.5-10.1); CARBON DIOXIDE LEVEL 28 MMOL/L (20-31); CHLORIDE LEVEL 108 MMOL/L (98-107); CREATININE FOR GFR 0.65 MG/DL (0.70-1.30); GLOMERULAR FILTRATION RATE > 60.0 (>60); GLUCOSE, FASTING 104 MG/DL (60-100); POTASSIUM SERUM 4.1 MMOL/L (3.5-5.1); SODIUM LEVEL 139 MMOL/L (136-145); TOTAL PROTEIN 7.4 G/DL (5.7-8.2)
[2024-06-26 17:10] LABS: FREE T4 0.94 NG/DL (0.89-1.76); THYROID STIMULATING HORMONE 2.442 uIU/ML (0.55-4.78)
[2024-06-26 17:26] LABS: HEPATITIS B SURFACE ANTIGEN NEGATIVE (NEGATIVE)
[2024-06-26 17:28] LABS: CPK CREATINE PHOSPHOKINASE 57 U/L (46-171); MB/CK RELATIVE INDEX 1.75 (< OR =4)
[2024-06-26 17:39] LABS: HIV 1&2 SCREEN NEGATIVE (NEGATIVE)
[2024-06-26 17:39] LABS: Trichomonas vaginalis (AMP) NOT DETECTED (NEGATIVE)
[2024-06-26 17:42] LABS: CK-MB VALUE MASS < 1.0 NG/ML (<3.6)
[2024-06-26 17:43] LABS: CPK CREATINE PHOSPHOKINASE 51 U/L (46-171); MB/CK RELATIVE INDEX 1.96 (< OR =4)
[2024-06-26 17:46] LABS: HEPATITIS B CORE ANTIBODY IGM NEGATIVE (NEGATIVE); HEPATITIS C VIRUS ABY INDEX 0.17 INDEX (<0.8)
[2024-06-26 18:03] LABS: GC DNA AMPLIFICATION NEGATIVE (NEGATIVE)
[2024-06-26] MEDS ORDERED: ADULKIT XX (18:21)
[2024-06-26] MEDS ORDERED: LISI10TA22 PO (18:21)
[2024-06-26] MEDS ORDERED: METO25TA4 PO (18:21)
[2024-06-26 18:28] VITALS: BP 172/119
[2024-06-26] MEDS: METOPROLOL TART 25 MG TABLET PO ONE (18:28)
[2024-06-26] MEDS: BICILLIN L-A 2,400,000 UNIT/4 ML SYRINGE (PENICILLIN G BENZATINE) IM ONE (18:39)
[2024-06-26 19:06] VITALS: BP 165/100; TEMP 97.6; O2SAT 97
== END 2024-06-26 19:10 | disposition home or self-care (01) ==
LOC: M ED 14:35
DX: I10 Essential (primary) hypertension (principal); R07.9 Chest pain, unspecified; R21 Rash and other nonspecific skin eruption; Z87.442 Personal history of urinary calculi
CPT/HCPCS: 71045; 80048; 80074; 80076; 81001; 82550; 82553; 83690; 83880; 84439; 84443; 84484; 85025; 85610; 85652; 85730; 86140; 86780; 87389; 87661; 87810; 87850; 93005; 93041; 94760; 96372; 99285; J0561